=== PATIENT | female | born 1995 | race African-American/Black ===

== ENCOUNTER → 2021-06-01 13:51 | Outpatient (BNVA) | payer OTHER, SELFPAY | PROVIDERS: Visit Provider Physician Assistant | DX: S46.912A Strain of unspecified muscle, fascia and tendon at shoulder and upper arm level, left arm, initial encounter (principal); Y04.8XXA Assault by other bodily force, initial encounter | CPT/HCPCS: 99203 ==

== ENCOUNTER → 2022-04-13 14:15 | Outpatient (BNVA) | payer OTHER, SELFPAY | PROVIDERS: Visit Provider Internal Medicine | DX: S90.31XA Contusion of right foot, initial encounter (principal); W50.0XXA Accidental hit or strike by another person, initial encounter | CPT/HCPCS: 73630; 99202 ==

== ENCOUNTER → 2022-04-20 11:15 | Outpatient (BNVA) | payer OTHER, SELFPAY | PROVIDERS: Visit Provider Internal Medicine | DX: S90.31XD Contusion of right foot, subsequent encounter (principal); W50.0XXD Accidental hit or strike by another person, subsequent encounter | CPT/HCPCS: 99213 ==

== ENCOUNTER 2022-05-13 15:27 | Emergency (ER) | payer OTHER, SELFPAY ==
[2022-05-13 15:32] VITALS: BP 130/70; PULSE 88; O2SAT 98
[2022-05-13 15:40] VITALS: BP 148/97; PULSE 73; RESP 18; TEMP 36.8; O2SAT 97; BMI 45.4
[2022-05-13 16:05] VITALS: BP 140/80; PULSE 71; RESP 18; TEMP 37; O2SAT 99
--- NOTE | 2022-05-13 16:21 | ECG_ITS ---
Test Reason : SOB/dizziness Blood Pressure : / mmHG Vent. Rate : 078 BPM Atrial Rate : 078 BPM P-R Int : 162 ms QRS Dur : 082 ms QT Int : 378 ms P-R-T Axes : 056 001 007 degrees QTc Int : 430 ms Sinus rhythm with marked sinus arrhythmia Minimal voltage criteria for LVH, may be normal variant ( R in aVL ) Septal infarct , age undetermined Abnormal ECG No previous ECGs available Referred By: Bridgette Armenta Electronically Signed By:Arthur Fried
[2022-05-13 17:01] LABS: MANUAL DIFF FLAG NO
[2022-05-13 17:03] LABS: Basophils Percent Auto 0.5 % (0-2); Eosinophils Percent Auto 0.5 % (0-4); Hematocrit 34.7 % (37.0-47.0); Hemoglobin 10.7 g/dl (12.0-16.0); Imm Gran Abs Auto 0.01 X10*3/uL (0.00-0.03); Imm Gran Pct Auto 0.2 % (0.0-0.4); Lymphocytes Absolute Auto 1.2 X10*3/uL (1.2-4.9); Lymphocytes Percent Auto 28.1 % (20-40); Mean Corpuscular HGB Conc 30.8 g/dl (31.0-35.0); Mean Corpuscular Hemoglobin 24.9 pg (27.0-33.0); Mean Corpuscular Volume 80.7 fL (80.0-98.0); Mean Platelet Volume 10.3 fL (9.4-12.3); Monocytes Absolute Auto 0.3 X10*3/uL (0.1-1.2); Monocytes Percent Auto 5.9 % (2-11); Neutrophils Absolute Auto 2.8 x10*3/uL (2.0-8.3); Neutrophils Percent Auto 64.8 % (45-73); Platelet Count 271 X10*3/uL (160-400); Red Cell Distribution Width 14.7 % (11.0-16.0); White Blood Count 4.3 X10*3/uL (4.8-10.8)
[2022-05-13 17:05] LABS: Appearance Urine Clear; Color Urine Yellow; Glucose Urine UA Negative (Negative); Leukocyte Esterase Urine Trace (Negative); Nitrite Urine Negative (Negative); PH 6.5 (5.0-9.0); UMIC TRIGGER UACC YES; Urine Blood Negative (Negative); Urine Ketones Negative (Negative); Urine Protein Negative (Neg-Trace)
[2022-05-13 17:13] LABS: UPreg QC Valid YES; Urine Pregnancy NEGATIVE (NEGATIVE)
[2022-05-13 17:16] LABS: Bacteria Urine 1+ (None Seen); Hyaline Casts Urine 0-2 /LPF (0-2); RBC Urine 0-2 /HPF (0-2); WBC Urine 0-5 /HPF (0-5)
--- NOTE | 2022-05-13 17:19 | ED.DIZZY ---
HPI - Dizziness General Chief Complaint: Dizziness Stated Complaint: DIZZINESS Time Seen by Provider: 05/13/22 16:13 Source: patient Mode of arrival: ambulatory Limitations: no limitations History of Present Illness HPI Narrative: 27-year-old female presents via EMS for dizziness that started while she was driving. 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 After drinking Pedialyte, patient has continued to feel weak and dizzy, called 911 for assistance. She did present to [facility] on Sunday for chest pain however she was not evaluated because of the long wait time and she left prior to being evaluated by provider. She does not report any chest pain at this time, denies fevers, chills, palpitations, abdominal pain, abdominal distention, abnormal bleeding, recent falls or trauma. MD elicited complaint: dizziness Onset (ago): hour(s) (Several hours prior to arrival) Timing: sudden onset Severity: mild Description: lightheadedness History of similar symptoms: Yes Relieving factors: nothing Associated symptoms: denies other symptoms Related Data Previous Rx's Medication Instructions Recorded cholecalciferol (vitamin D3) 125 125 mcg PO DAILY #30 tabs 05/13/22 mcg (5,000 unit) tablet (Vitamin D3) nitrofurantoin macrocrystal 100 mg 100 mg PO Q12H 7 days #14 caps 05/13/22 capsule (Macrodantin) Allergies Allergy/AdvReac Type Severity Reaction Status Date / Time No Known Allergies Allergy Verified 05/13/22 15:39 Review of Systems Review of Systems: Constitutional: Positive dizziness, No Fever, No Chills ENT/Mouth: No Ear Pain, No Hoarseness, No sore throat Eyes: No Eye Pain, No Swelling, No Redness, No Foreign Body Cardiovascular: No Chest Pain, No SOB Respiratory: No Cough, No Dyspnea Gastrointestinal: No Nausea, No Vomiting, No Diarrhea, No abdominal Pain Genitourinary: No Dysuria, No Hematuria Musculoskeletal: No joint pain, No Myalgias, No Joint Swelling Skin: No Skin lacerations, No rash Neuro: No Weakness, No Numbness, No Paresthesias, No Loss of Consciousness, No Dizziness, No Headache Psych: No Anxiety/Panic, No Depression Heme/Lymph: no easy bruising, no Lymphadenopathy Endocrine: No Polyuria, No Polydipsia Yes all other systems are reviewed and are negative [facility] Past Medical History Attestation statement: The following information was validated with the patient. Source: old records reviewed Social History Social History Advance Directives: No Advance Directives Information Provided: Yes Physical Exam Vital Signs: Vital Signs: Last Vital Signs Temp 98.6 F 05/13/22 16:05 Pulse 71 05/13/22 16:05 Resp 18 05/13/22 16:05 BP 140/80 H 05/13/22 16:05 Pulse Ox 99 05/13/22 16:05 O2 Del Method 05/13/22 16:05 BMI result Body Mass Index 45.4 Appearance: Alert. Oriented X3. No acute distress. Eyes: Pupils equal, round and reactive to light. ENT: Pharynx normal. Neck: Normal inspection. Neck supple. CVS: Normal heart rate and rhythm. Pulses normal. Respiratory: No respiratory distress. Breath sounds normal. Abdomen: Soft and nontender. Skin: Skin warm and dry. Normal skin color. Normal skin turgor. Extremities: No lower extremity edema. Gait well-balanced well coordinated. Neuro: No motor deficit. No sensory deficit. Cranial nerves 2-12 intact. Course Course Course Narrative: 27-year-old female presents for dizziness. Has a history of iron deficiency anemia. Presented with dizziness today, was dizzy while the she was driving, felt like the world was spinning and felt weak. She did pull her car over, and tried to replenish electrolytes with Pedialyte. She stated that did not help, so she presented to the emergency department via EMS. She does not report chest pain or pressure, palpitations, shortness of breath on exertion, abnormal vaginal bleeding, abdominal pain, dysuria, hematuria, fevers or chills. 17:30 white count 4.3, H&H 10.7/34.7, MCH 24.9, MCHC 30.8, levels are consistent with anemia, sodium is 134 urinalysis positive for trace leukocyte esterase and bacteria. Influenza COVID RSV are negative. Vitamin-D is 17. Will treat with Macrobid for UTI, give prescription for vitamin-D 5000 units p.o. daily. I did recommend patient following up with her primary care physician for anemia, as well as vitamin-D deficiency. Patient verbalized understanding of and agrees to plan of care discharge home. Verbalized understanding signs and symptoms indicating need for emergent intervention Medications Administered Discontinued Medications Generic Name Dose Route Start Last Admin Trade Name Lelia PRN Reason Stop Dose Admin Nitrofurantoin Macrocrystals 100 mg 05/13/22 19:38 05/13/22 20:27 Nitrofurantoin Monohyd/M-Cryst 100 Mg Capsule PO 05/13/22 19:39 Not Given ONCE ONE MDM - Dizziness MDM Narrative Medical decision making narrative: Anemia, UTI, vitamin-D deficiency Differential Diagnosis Differential diagnosis: Likely benign paroxysmal positional vertigo Medical Records Attestation: I reviewed the patient's medical records. Lab Data Attestation: I reviewed the patient's lab results. Result diagrams: 05/13/22 16:49 05/13/22 16:49 Labs: Lab Results 05/13/22 05/13/22 05/13/22 Range/Units 16:48 16:48 16:48 WBC (4.8-10.8) X10*3/uL RBC (4.20-5.50) X10*6/uL Hgb (12.0-16.0) g/dl Hct (37.0-47.0) % MCV (80.0-98.0) fL MCH (27.0-33.0) pg MCHC (31.0-35.0) g/dl RDW (11.0-16.0) % Plt Count (160-400) X10*3/uL MPV (9.4-12.3) fL Immature Gran % (Auto) (0.0-0.4) % Neut % (Auto) (45-73) % Lymph % (Auto) (20-40) % [place] % (Auto) (2-11) % Eos % (Auto) (0-4) % Baso % (Auto) (0-2) % Lymph # (Auto) (1.2-4.9) X10*3/uL [place] # (Auto) (0.1-1.2) X10*3/uL Eos # (Auto) (0.0-0.4) X10*3/uL Baso # (Auto) (0.0-0.2) X10*3/uL Abs Immat Gran (auto) (0.00-0.03) X10*3/uL Absolute Neuts (auto) (2.0-8.3) x10*3/uL Absolute Nucleated RBC (0.0-0.012) X10*3/uL Nucleated RBC % (auto) (0.0-0.2) /100WBC Sodium (135-145) mmol/L Potassium (3.3-5.1) mmol/L Chloride (96-108) mmol/L Carbon Dioxide (22-29) mmol/L Anion Gap (12-20) BUN (9-16) mg/dL Creatinine (0.5-1.4) mg/dL Estim Creat Clear Calc Estimated GFR POC Glucose (60-115) mg/dL Random Glucose (60-115) mg/dL Calcium (8.4-10.2) mg/dL Magnesium (1.6-2.6) mg/dL Troponin I High Sens < 3.5 (<3.5-17.0) ng/L 25-OH Vitamin D Total (>30) ng/mL 1,25 Dihydroxy Vit D 1,25 Dihydroxy Vit D2 1,25 Dihydroxy Vit D3 Urine Color Yellow Urine Appearance Clear Urine pH 6.5 (5.0-9.0) Ur Specific [place] 1.010 (1.005-1.025) Urine Protein Negative (Neg-Trace) mg/dL Urine Glucose (UA) Negative (Negative) mg/dL Urine Ketones Negative (Negative) mg/dL Urine Blood Negative (Negative) Urine Nitrite Negative (Negative) Ur Leukocyte Esterase Trace H (Negative) Urine RBC 0-2 (0-2) /HPF Urine WBC 0-5 (0-5) /HPF Ur Squamous Epith Cells 3-5 (0-2) /HPF Urine Bacteria 1+ (None Seen) Hyaline Casts 0-2 (0-2) /LPF Urine Test (NEGATIVE) Influenza Type A (PCR) NEGATIVE (Negative) Influenza Type B (PCR) NEGATIVE (Negative) RSV RNA Qual (PCR) NEGATIVE (Negative) SARS-CoV-2 RNA (RT-PCR) NEGATIVE (Negative) 05/13/22 05/13/22 05/13/22 Range/Units 16:48 16:49 16:49 WBC 4.3 L (4.8-10.8) X10*3/uL RBC 4.30 (4.20-5.50) X10*6/uL Hgb 10.7 L (12.0-16.0) g/dl Hct 34.7 L (37.0-47.0) % MCV 80.7 (80.0-98.0) fL MCH 24.9 L (27.0-33.0) pg MCHC 30.8 L (31.0-35.0) g/dl RDW 14.7 (11.0-16.0) % Plt Count 271 (160-400) X10*3/uL MPV 10.3 (9.4-12.3) fL Immature Gran % (Auto) 0.2 (0.0-0.4) % Neut % (Auto) 64.8 (45-73) % Lymph % (Auto) 28.1 (20-40) % [place] % (Auto) 5.9 (2-11) % Eos % (Auto) 0.5 (0-4) % Baso % (Auto) 0.5 (0-2) % Lymph # (Auto) 1.2 (1.2-4.9) X10*3/uL [place] # (Auto) 0.3 (0.1-1.2) X10*3/uL Eos # (Auto) 0.0 (0.0-0.4) X10*3/uL Baso # (Auto) 0.0 (0.0-0.2) X10*3/uL Abs Immat Gran (auto) 0.01 (0.00-0.03) X10*3/uL Absolute Neuts (auto) 2.8 (2.0-8.3) x10*3/uL Absolute Nucleated RBC 0.000 (0.0-0.012) X10*3/uL Nucleated RBC % (auto) 0.0 (0.0-0.2) /100WBC Sodium 134 L (135-145) mmol/L Potassium 4.3 (3.3-5.1) mmol/L Chloride 104 (96-108) mmol/L Carbon Dioxide 25 (22-29) mmol/L Anion Gap 9 L (12-20) BUN 15 (9-16) mg/dL Creatinine 0.74 (0.5-1.4) mg/dL Estim Creat Clear Calc 174.6 Estimated GFR > 60 POC Glucose (60-115) mg/dL Random Glucose 82 (60-115) mg/dL Calcium 8.9 (8.4-10.2) mg/dL Magnesium 2.1 (1.6-2.6) mg/dL Troponin I High Sens (<3.5-17.0) ng/L 25-OH Vitamin D Total 17.0 (>30) ng/mL 1,25 Dihydroxy Vit D 1,25 Dihydroxy Vit D2 1,25 Dihydroxy Vit D3 Urine Color Urine Appearance Urine pH (5.0-9.0) Ur Specific [place] (1.005-1.025) Urine Protein (Neg-Trace) mg/dL Urine Glucose (UA) (Negative) mg/dL Urine Ketones (Negative) mg/dL Urine Blood (Negative) Urine Nitrite (Negative) Ur Leukocyte Esterase (Negative) Urine RBC (0-2) /HPF Urine WBC (0-5) /HPF Ur Squamous Epith Cells (0-2) /HPF Urine Bacteria (None Seen) Hyaline Casts (0-2) /LPF Urine Test NEGATIVE (NEGATIVE) Influenza Type A (PCR) (Negative) Influenza Type B (PCR) (Negative) RSV RNA Qual (PCR) (Negative) SARS-CoV-2 RNA (RT-PCR) (Negative) 05/13/22 05/13/22 Range/Units 16:49 19:06 WBC (4.8-10.8) X10*3/uL RBC (4.20-5.50) X10*6/uL Hgb (12.0-16.0) g/dl Hct (37.0-47.0) % MCV (80.0-98.0) fL MCH (27.0-33.0) pg MCHC (31.0-35.0) g/dl RDW (11.0-16.0) % Plt Count (160-400) X10*3/uL MPV (9.4-12.3) fL Immature Gran % (Auto) (0.0-0.4) % Neut % (Auto) (45-73) % Lymph % (Auto) (20-40) % [place] % (Auto) (2-11) % Eos % (Auto) (0-4) % Baso % (Auto) (0-2) % Lymph # (Auto) (1.2-4.9) X10*3/uL [place] # (Auto) (0.1-1.2) X10*3/uL Eos # (Auto) (0.0-0.4) X10*3/uL Baso # (Auto) (0.0-0.2) X10*3/uL Abs Immat Gran (auto) (0.00-0.03) X10*3/uL Absolute Neuts (auto) (2.0-8.3) x10*3/uL Absolute Nucleated RBC (0.0-0.012) X10*3/uL Nucleated RBC % (auto) (0.0-0.2) /100WBC Sodium (135-145) mmol/L Potassium (3.3-5.1) mmol/L Chloride (96-108) mmol/L Carbon Dioxide (22-29) mmol/L Anion Gap (12-20) BUN (9-16) mg/dL Creatinine (0.5-1.4) mg/dL Estim Creat Clear Calc Estimated GFR POC Glucose 67 (60-115) mg/dL Random Glucose (60-115) mg/dL Calcium (8.4-10.2) mg/dL Magnesium (1.6-2.6) mg/dL Troponin I High Sens (<3.5-17.0) ng/L 25-OH Vitamin D Total (>30) ng/mL 1,25 Dihydroxy Vit D Cancelled 1,25 Dihydroxy Vit D2 Cancelled 1,25 Dihydroxy Vit D3 Cancelled Urine Color Urine Appearance Urine pH (5.0-9.0) Ur Specific [place] (1.005-1.025) Urine Protein (Neg-Trace) mg/dL Urine Glucose (UA) (Negative) mg/dL Urine Ketones (Negative) mg/dL Urine Blood (Negative) Urine Nitrite (Negative) Ur Leukocyte Esterase (Negative) Urine RBC (0-2) /HPF Urine WBC (0-5) /HPF Ur Squamous Epith Cells (0-2) /HPF Urine Bacteria (None Seen) Hyaline Casts (0-2) /LPF Urine Test (NEGATIVE) Influenza Type A (PCR) (Negative) Influenza Type B (PCR) (Negative) RSV RNA Qual (PCR) (Negative) SARS-CoV-2 RNA (RT-PCR) (Negative) ECG Data Attestation: I personally reviewed and interpreted this ECG as follows: ECG interpretation date: 05/13/22 ECG interpretation time: 17:12 Prior ECG tracings: not available for review Interpretation: Vent. rate 78 BPM ME interval 162 ms QRS duration 82 ms QT/QTc 378/430 ms P-R-T axes 56 1 7 Sinus rhythm with marked sinus arrhythmia Minimal voltage criteria for LVH, may be normal variant ( R in aVL ) Septal infarct , age undetermined Abnormal ECG No previous ECGs available Discharge Plan Discharge Clinical Impression: Anemia, UTI (urinary tract infection), Vitamin D deficiency Patient Disposition: Home, Self-Care Instructions: Urinary Tract Infection in Women (ED), Anemia (ED), Vitamin D Deficiency (ED) Additional Instructions: Your evaluated for dizziness. Please follow-up with primary care physician for anemia. You may require iron supplementation. Your vitamin-D level was 17, normal value is 30. Please take vitamin-D 5000 units daily. Urinalysis is positive for UTI. Please take Macrobid 100 mg daily for the next 5 days. Drink plenty of fluids. Thank you for choosing this emergency department for evaluation. Please follow-up with primary care physician as needed. Return to the emergency department for any new, concerning, or worsening symptoms. Prescriptions: New nitrofurantoin macrocrystal [Macrodantin] 100 mg capsule 100 mg PO Q12H 7 Days Qty: 14 0RF Rx Instructions: must administer with a meal/food cholecalciferol (vitamin D3) [Vitamin D3] 125 mcg (5,000 unit) tablet 125 mcg PO DAILY Qty: 30 0RF Interventions: ED Discharge Assessment Last Done: 05/13/22 20:28 Discharge Date/Time: 05/13/22 20:29
[2022-05-13 17:24] LABS: Anion Gap 9 (12-20); Blood Urea Nitrogen 15 mg/dL (9-16); Calcium 8.9 mg/dL (8.4-10.2); Carbon Dioxide 25 mmol/L (22-29); Chloride 104 mmol/L (96-108); Creatinine Clr Calc Pharmacy 174.6; Estimated Glomerular Filt Rate > 60; Glucose Random 82 mg/dL (60-115); Magnesium 2.1 mg/dL (1.6-2.6); Potassium 4.3 mmol/L (3.3-5.1); Sodium 134 mmol/L (135-145)
[2022-05-13 17:25] LABS: Troponin-I High Sensitivity < 3.5 ng/L (<3.5-17.0)
[2022-05-13 17:51] LABS: Influenza A PCR NEGATIVE (Negative); Influenza B PCR NEGATIVE (Negative); Resp Syncy Virus RNA Qual PCR NEGATIVE (Negative); SARS COV2 PCR INHOUSE NEGATIVE (Negative)
[2022-05-13 19:16] LABS: Glucose, Whole Blood 67 mg/dL (60-115)
--- NOTE | 2022-05-13 20:27 | PC.NURSE ---
pt left prior to initial dose of abx.
== END 2022-05-13 20:29 | disposition home or self-care (01) ==
PROVIDERS: Nurse Practitioner Family; Emergency Provider Emergency Medicine Emergency Medical Services
DX: N39.0 Urinary tract infection, site not specified (principal); D64.9 Anemia, unspecified; E55.9 Vitamin D deficiency, unspecified; R42 Dizziness and giddiness; Z20.822 Contact with and (suspected) exposure to COVID-19
CPT/HCPCS: 0241U; 80048; 81001; 81003; 81025; 82306; 82652; 82947; 83735; 84484; 85025; 93005; 99283; 99284

== ENCOUNTER 2023-10-21 18:20 | Emergency (ER) | payer OTHER, SELFPAY ==
[2023-10-21 18:38] VITALS: BP 174/106; PULSE 89; RESP 16; TEMP 36.8; O2SAT 100; BMI 46.6
--- NOTE | 2023-10-21 18:38 | ED.GENADULT ---
HPI - General Adult General Chief complaint: General Medical Stated complaint: lightheadedness Time Seen by Provider: 10/21/23 20:01 Source: patient, RN notes reviewed and old records reviewed Mode of arrival: ambulatory Limitations: no limitations History of Present Illness HPI narrative: 28-year-old female with past medical history significant for anemia, ?low vitamin-D and hyperglycemia presents for evaluation of lightheadedness. 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 Patient states that this has never happened before. She states that she did not eat today except for just prior to this episode She has no other complaints or concerns at time She reports the lightheadedness lasted for maybe 1.5 hours before resolving Related Data Previous Rx's ?Medication ?Instructions ?Recorded cholecalciferol (vitamin D3) 125 125 mcg PO DAILY #30 tabs 05/13/22 mcg (5,000 unit) tablet (Vitamin D3) nitrofurantoin macrocrystal 100 mg 100 mg PO Q12H 7 days #14 caps 05/13/22 capsule (Macrodantin) Allergies Allergy/AdvReac Type Severity Reaction Status Date / Time No Known Allergies Allergy Verified 10/21/23 18:40 Review of Systems Constitutional: Constitutional: Denies body ache(s), Denies chills, Denies fever(s) and Denies headache(s) Eyes: Eyes: Denies blurry vision ENT: Denies vertigo, Denies dizziness and Denies headache(s) Cardiovascular: Cardiovascular: Denies chest pain, Denies syncope, Denies rapid heart rate, Reports lightheadedness and Denies dyspnea Respiratory: Respiratory: Denies cough and Denies dyspnea Gastrointestinal: Gastrointestinal: Denies abdominal pain, Denies nausea and Denies vomiting Musculoskeletal: Musculoskeletal: Denies back pain Integumentary/Breasts: Skin/Breast: Denies rash Neurologic: Denies vertigo, Denies dizziness, Denies syncope and Denies headache(s) Psychiatric: Psychiatric: Denies panic attacks [facility] Social History Social History Smoked in Last 30 Days: No Use of substances other than those prescribed or required for medical reasons: No Advance Directives: No Advance Directives Information Provided: No Do you have a plan to hurt others: No Plan Physical Exam ED Vital Signs: Vital Signs - 24 hr 10/21/23 18:38 10/21/23 20:28 10/21/23 20:33 Temperature 98.2 F 97.9 F Pulse Rate 89 78 Respiratory Rate 16 16 Blood Pressure 174/106 H 150/78 H 150/78 H Pulse Oximetry 100 98 Oxygen Delivery Method Room Air Room Air BMI result Body Mass Index 46.6 Const General: healthy appearing, comfortable, no acute distress, alert and awake Nutritional Appearance: well nourished and obese Orientation/consciousness: patient oriented x3 HENMT Head: Yes normocephalic and Yes atraumatic Throat: Yes posterior oropharynx normal Eyes Eyelids: Yes eyelids normal Conjunctivae: conjunctivae normal Sclerae: sclerae normal Corneas: corneas normal Pupils: Equal, round and reactive pupils present EOM: EOMs intact bilaterally Neck Neck: Yes full ROM Resp Effort & Inspection: normal respiratory effort, able to speak in complete sentences, no audible wheezes and not labored Auscultation: clear to auscultation bilaterally Cardio Rate: regular rate Rhythm: regular rhythm GI Inspection: No distended Palpation (GI): Soft to palpation, not firm, nontender, no guarding and not rigid Auscultation: normoactive bowel sounds Skin General skin exam: no rashes or lesions noted and elasticity normal Neuro General: patient oriented x3 Cranial nerves: Yes CN's II-XII intact bilaterally, Yes Equal, round and reactive pupils present and Yes Bilaterally intact EOM present Cognition (Neuro): normal cognition Extrem Other: Moving all extremities well without any obvious deformities Course Course Course Narrative: RME performed by Carla Arshad PA-C. Patient is a 28 year old assigned female at presenting to the emergency department feeling lightheaded. Patient states she was in [employer] and started to feel lightheaded so she went to [employer], bought aspirin, took the aspirin and still feels lightheaded. Patient states that she also tried drinking some liquid IV but that didn't help either. Detailed physical exam and review of systems are deferred to the design painter. EKG, labs, and swabs ordered. Patient placed back in the waiting room pending room availability and results. Medical Decision Making Medical Decision Making [facility] Narrative: This is a healthy 28-year-old female presents for evaluation of lightheadedness, near-syncope. She did not have a true syncopal episode. Her workup was significant for a mild anemia that is consistent with her baseline. She has no leukocytosis. Electrolytes are within normal limits, renal function within normal limits, LFTs within normal limits. Troponin undetectable. Patient's EKG is nonischemic. She denies any lower abdominal pain, burning with urination. She denies any concern for . Therefore they UA and U preg were not obtained prior to discharge. The patient is currently asymptomatic and has been for a couple of hours. Differential Diagnosis Differential Diagnoses: The differential diagnosis associated with the presentation includes Lightheadedness Near-syncope Hypoglycemia Orthostasis Lab Data [facility] Lab Attestation statement: I reviewed the patient's lab results. See above 10/21/23 18:59 10/21/23 18:59 Labs: Lab Results 10/21/23 Range/Units 18:59 WBC 7.1 (4.8-10.8) X10*3/uL RBC 4.20 (4.20-5.50) X10*6/uL Hgb 10.7 L (12.0-16.0) g/dl Hct 33.9 L (37.0-47.0) % MCV 80.7 (80.0-98.0) fL MCH 25.5 L (27.0-33.0) pg MCHC 31.6 (31.0-35.0) g/dl RDW 14.6 (11.0-16.0) % Plt Count 301 (160-400) X10*3/uL MPV 9.8 (9.4-12.3) fL Immature Gran % (Auto) 0.3 (0.0-0.4) % Neut % (Auto) 66.1 (45-73) % Lymph % (Auto) 26.4 (20-40) % [place] % (Auto) 5.9 (2-11) % Eos % (Auto) 0.7 (0-4) % Baso % (Auto) 0.6 (0-2) % Lymph # (Auto) 1.9 (1.2-4.9) X10*3/uL [place] # (Auto) 0.4 (0.1-1.2) X10*3/uL Eos # (Auto) 0.1 (0.0-0.4) X10*3/uL Baso # (Auto) 0.0 (0.0-0.2) X10*3/uL Abs Immat Gran (auto) 0.02 (0.00-0.03) X10*3/uL Absolute Neuts (auto) 4.7 (2.0-8.3) x10*3/uL Absolute Nucleated RBC 0.000 (0.0-0.012) X10*3/uL Nucleated RBC % (auto) 0.0 (0.0-0.2) /100WBC PT 12.2 (11.1-13.3) SEC INR 1.0 (0.9-1.1) APTT 32.1 (26.0-36.8) SEC Sodium 141 (135-145) mmol/L Potassium 3.8 (3.3-5.1) mmol/L Chloride 106 (96-108) mmol/L Carbon Dioxide 25 (22-29) mmol/L Anion Gap 14 (12-20) BUN 15 (9-16) mg/dL Creatinine 0.91 (0.5-1.4) mg/dL Estim Creat Clear Calc 142.8 Estimated GFR > 60 Random Glucose 111 (60-115) mg/dL Calcium 9.3 (8.4-10.2) mg/dL Magnesium 2.0 (1.6-2.6) mg/dL Total Bilirubin 0.2 (0.0-1.0) mg/dL AST 15 (5-31) U/L ALT 11 (0-31) U/L Alkaline Phosphatase 52 (39-117) U/L Troponin I High Sens < 2.7 (<3.5-17.0) ng/L Total Protein 7.9 (6.5-8.0) g/dL Albumin 3.8 (3.5-5.0) g/dL Influenza Type A (PCR) NEGATIVE (Negative) Influenza Type B (PCR) NEGATIVE (Negative) RSV RNA Qual (PCR) NEGATIVE (Negative) SARS-CoV-2 RNA (RT-PCR) NEGATIVE (Negative) Independent Interpretation I performed an independent interpretation of an: EKG Interpretation: Normal sinus rhythm with a rate of [address] segment elevations or depressions Discharge Plan Discharge Clinical Impression: Light-headedness Patient Disposition: Home, Self-Care Instructions: Lightheadedness (ED) Additional Instructions: Your workup in the ER today was reassuring. You did have a mild anemia consistent with her baseline Your blood pressure with elevated today as high as 174/106 I recommend that you follow-up with your primary doctor regarding this Return for new or worsening symptoms Prescriptions: No Action nitrofurantoin macrocrystal [Macrodantin] 100 mg capsule 100 mg PO Q12H 7 Days Qty: 14 0RF Rx Instructions: must administer with a meal/food cholecalciferol (vitamin D3) [Vitamin D3] 125 mcg (5,000 unit) tablet 125 mcg PO DAILY Qty: 30 0RF Interventions: ED Discharge Assessment Last Done: 10/21/23 20:33 Discharge Date/Time: 10/21/23 20:36 Print Language: Irish
--- NOTE | 2023-10-21 18:39 | ECG_ITS ---
Test Reason : LIGHTHEADED Blood Pressure : / mmHG Vent. Rate : 095 BPM Atrial Rate : 095 BPM P-R Int : 156 ms QRS Dur : 070 ms QT Int : 336 ms P-R-T Axes : 047 -06 013 degrees QTc Int : 422 ms Normal sinus rhythm Minimal voltage criteria for LVH, may be normal variant ( R in aVL ) Septal infarct (cited on or before 13-MAY-2022) Abnormal ECG When compared with ECG of 13-MAY-2022 17:12, No significant change was found Referred By: Carla Arshad Electronically Signed By:JEREMIAS MIRANDA MD
[2023-10-21 19:05] LABS: MANUAL DIFF FLAG NO
[2023-10-21 19:07] LABS: Basophils Percent Auto 0.6 % (0-2); Eosinophils Absolute Auto 0.1 X10*3/uL (0.0-0.4); Eosinophils Percent Auto 0.7 % (0-4); Hematocrit 33.9 % (37.0-47.0); Hemoglobin 10.7 g/dl (12.0-16.0); Imm Gran Abs Auto 0.02 X10*3/uL (0.00-0.03); Imm Gran Pct Auto 0.3 % (0.0-0.4); Lymphocytes Absolute Auto 1.9 X10*3/uL (1.2-4.9); Lymphocytes Percent Auto 26.4 % (20-40); Mean Corpuscular HGB Conc 31.6 g/dl (31.0-35.0); Mean Corpuscular Hemoglobin 25.5 pg (27.0-33.0); Mean Corpuscular Volume 80.7 fL (80.0-98.0); Mean Platelet Volume 9.8 fL (9.4-12.3); Monocytes Absolute Auto 0.4 X10*3/uL (0.1-1.2); Monocytes Percent Auto 5.9 % (2-11); Neutrophils Absolute Auto 4.7 x10*3/uL (2.0-8.3); Neutrophils Percent Auto 66.1 % (45-73); Platelet Count 301 X10*3/uL (160-400); Red Cell Distribution Width 14.6 % (11.0-16.0); White Blood Count 7.1 X10*3/uL (4.8-10.8)
[2023-10-21 19:14] LABS: Prothrombin Time 12.2 SEC (11.1-13.3)
[2023-10-21 19:16] LABS: Partial Thromboplastin Time 32.1 SEC (26.0-36.8)
[2023-10-21 19:23] LABS: Alanine Aminotransferase 11 U/L (0-31); Albumin Level 3.8 g/dL (3.5-5.0); Alkaline Phosphatase 52 U/L (39-117); Anion Gap 14 (12-20); Aspartate Amino Transferase 15 U/L (5-31); Bilirubin Total 0.2 mg/dL (0.0-1.0); Blood Urea Nitrogen 15 mg/dL (9-16); Calcium 9.3 mg/dL (8.4-10.2); Carbon Dioxide 25 mmol/L (22-29); Chloride 106 mmol/L (96-108); Creatinine Clr Calc Pharmacy 142.8; Estimated Glomerular Filt Rate > 60; Glucose Random 111 mg/dL (60-115); Potassium 3.8 mmol/L (3.3-5.1); Sodium 141 mmol/L (135-145); Total Protein 7.9 g/dL (6.5-8.0)
[2023-10-21 19:37] LABS: Troponin-I High Sensitivity < 2.7 ng/L (<3.5-17.0)
[2023-10-21 19:45] LABS: Influenza A PCR NEGATIVE (Negative); Influenza B PCR NEGATIVE (Negative); Resp Syncy Virus RNA Qual PCR NEGATIVE (Negative); SARS COV2 PCR INHOUSE NEGATIVE (Negative)
[2023-10-21 20:28] VITALS: BP 150/78
[2023-10-21 20:33] VITALS: BP 150/78; PULSE 78; RESP 16; TEMP 36.6; O2SAT 98
== END 2023-10-21 20:36 | disposition home or self-care (01) ==
PROVIDERS: Physician Assistant Medical; Emergency Provider Emergency Medicine
DX: R42 Dizziness and giddiness (principal); D64.9 Anemia, unspecified; R10.9 Unspecified abdominal pain; R94.31 Abnormal electrocardiogram [ECG] [EKG]; Z79.899 Other long term (current) drug therapy; Z03.818 Encounter for observation for suspected exposure to other biological agents ruled out
CPT/HCPCS: 0241U; 80053; 83735; 84484; 85025; 85610; 85730; 93005; 99283; 99284

== ENCOUNTER → 2023-10-21 18:39 | Outpatient (BNV) | payer OTHER, SELFPAY | PROVIDERS: Emergency Provider Emergency Medicine; Visit Provider Internal Medicine Cardiovascular Disease | DX: R94.31 Abnormal electrocardiogram [ECG] [EKG] (principal) | CPT/HCPCS: 93010 ==